=== PATIENT | male | born 1950 | race Caucasian/White ===

== ENCOUNTER 2017-04-27 13:48 | Emergency (ER) | payer OTHER ==
[~2017-04-27] VITALS: Ht 167.6 cm; Wt 86.0 kg
[2017-04-27 13:56] VITALS: Ht 167.6 cm; Wt 86.0 kg
[2017-04-27] MEDS ORDERED: FUROSEMIDE 40 MG INJ IV STA (14:14)
[2017-04-27] MEDS ORDERED: ALBUTEROL 0.083% (NEB) 2.5 MG/3 ML AMP HHN STA (14:14)
[2017-04-27] MEDS ORDERED: AZITHROMYCIN 500MG/NS (PMX) 250 ML IVPB ONE (14:30)
[2017-04-27] MEDS ORDERED: METHYLPREDNISOLONE 125 MG INJ IV ONE (14:30)
[2017-04-27] MEDS ORDERED: DILTIAZEM 30 MG TAB PO ONE (14:30)
[2017-04-27] MEDS ORDERED: DILTIAZEM 25 MG INJ IV ONE ×2 (14:30→15:00)
[2017-04-27] MEDS ORDERED: IPRATROPIUM (NEB) 0.5 MG/2.5 ML AMP HHN ONE (14:30)
[2017-04-27 14:53] LABS: ADD SCAN DIFF NO
--- NOTE | 2017-04-27 14:54 | RADRPT ---
PROCEDURE: XR Chest. CLINICAL INDICATION: Chest pain TECHNIQUE: Single frontal view of the chest was obtained COMPARISON: None FINDINGS: The heart is enlarged. The thoracic aorta is calcified. There is a right lower lobe infiltrate and right pleural effusion. There is no pneumothorax. RPTAT: AA IMPRESSION: Right lower lobe infiltrate and right pleural effusion. Mild cardiomegaly. Calcified aorta consistent with atherosclerotic disease. .Jah Rosenberg MD, MD Date Time Electronically viewed and signed by .Jah Rosenberg MD, on 04/27/2017 14:53 .S/
[2017-04-27 14:56] LABS: BASOPHILS % 0.3 % (0.0-2.0); EOSINOPHILS # 0.1 10^3/ul (0.0-0.5); EOSINOPHILS % 0.5 % (0.0-7.0); HEMATOCRIT 41.2 % (42.0-52.0); HEMOGLOBIN 13.6 g/dl (14.0-18.0); LYMPHOCYTES # 1.8 10^3/ul (0.8-2.9); LYMPHOCYTES % 16.5 % (15.0-51.0); MEAN CORPUSCULAR HEMOGLOBIN 33.5 pg (29.0-33.0); MEAN CORPUSCULAR VOLUME 101.5 fl (82.0-101.0); MEAN PLATELET VOLUME 11.2 fl (7.4-10.4); MONOCYTE # 1.2 10^3/ul (0.3-0.9); NEUTROPHIL # 7.9 10^3/ul (1.6-7.5); NEUTROPHILS % 71.2 % (39.0-77.0); PLATELET COUNT 217 10^3/UL (140-415); RED BLOOD COUNT 4.06 10^6/ul (4.70-6.10); WHITE BLOOD COUNT 11.1 10^3/ul (4.8-10.8)
[2017-04-27 15:12] LABS: INR 1.09; PROTIME 14.1 Sec (12.2-14.2); PT RATIO 1.1
[2017-04-27 15:13] LABS: PARTIAL THROMBOPLASTIN TIME 28.7 Sec (25.0-35.0)
[2017-04-27 15:19] LABS: CREATININE 0.87 mg/dl (0.61-1.24); POTASSIUM 3.9 mmol/L (3.5-5.1)
[2017-04-27 15:24] VITALS: BP 159/117; PULSE 138; RESP 27; TEMP 98.4
[2017-04-27 15:30] LABS: TROPONIN-I 0.014 ng/ml (0.00-0.12)
[2017-04-27] MEDS ORDERED: LEVALBUTEROL (NEB) 1.25 MG/0.5 ML AMP HHN ONE (15:30)
[2017-04-27] MEDS ORDERED: AZIT250T94 PO (15:38)
[2017-04-27] MEDS ORDERED: PRED20TA PO (15:38)
[2017-04-27] MEDS ORDERED: ALBU18HF INHALATION (15:38)
--- NOTE | 2017-04-27 15:59 | ERD ---
ER Documentation Chief Complaint Date/Time DATE: 04/27/17 TIME: 15:58 Chief Complaint Complains of bilateral leg pain HPI Patient is a 66-year-old male with hypertension who presents with bilateral lower extremity swelling. He has swelling up to his testicles and penis. He said that the swelling is been there for 1 month but have gotten worse. He has shortness of breath. He also has chest pain. He tried albuterol for shortness of breath. He says that for the past few days he has been sleeping in a chair because he cannot lay flat. Upon review of old medical records this is the patient's first visit to the emergency department. He said that his primary doctor is at the [facility]. ROS All systems reviewed and are negative except as per history of present illness. Medications Home Meds Active Scripts Prednisone* (Prednisone*) 20 Mg Tab, 60 MG PO DAILY for 4 Days, TAB Prov:EDIE MCCLAIN MD 04/27/17 Albuterol Sulfate* (Ventolin HFA*) 18 Gm Hfa.aer.ad, 2 PUFF INHALATION Q4H, #1 INHALER Prov:EDIE MCCLAIN MD 04/27/17 Azithromycin* (Zithromax*) 250 Mg Tablet, 250 MG PO DAILY for 4 Days, TAB Prov:EDIE MCCLAIN MD 04/27/17 Allergies Allergies: Coded Allergies: No Known Allergy (Unverified , 04/27/17) PMhx/Soc Medical and Surgical Hx: pt denies Medical Hx, pt denies Surgical Hx History of Surgery: No Hx Neurological Disorder: Yes (epilepsy) Hx Respiratory Disorders: Yes (sob doesn't know name of dx) Hx Cardiac Disorders: Yes (high cholesterol) Hx Psychiatric Problems: No Hx Miscellaneous Medical Probl: Yes (previous head trauma) Hx Alcohol Use: No Hx Substance Use: Yes (Marijuana) Hx Tobacco Use: No Smoking Status: Never smoker FmHx Family History: No diabetes Physical Exam Vitals Vital Signs Date Time Temp Pulse Resp B/P Pulse Ox O2 Delivery O2 Flow Rate FiO2 04/27/17 15:36 138 22 98 Nasal Cannula 2.0 04/27/17 15:24 98.4 138 27 159/117 97 Nasal Cannula 2.0 04/27/17 14:57 Nasal Cannula 2 04/27/17 14:53 137 23 153/104 94 Room Air 04/27/17 14:47 140 25 165/110 96 Room Air 04/27/17 13:56 98.8 100 20 168/107 98 Physical Exam Const: Moderate distress Head: Atraumatic Eyes: Normal Conjunctiva ENT: Normal External Ears, Nose and Mouth. Neck: Full range of motion..~ No meningismus. Resp: Clear to auscultation bilaterally Cardio: Diffuse wheezing with tachypnea Abd: Soft, non tender, non distended. Normal bowel sounds Skin: No petechiae or rashes Back: No midline or flank tenderness Ext: 2+ pitting edema from feet all the way up to the scrotum Neur: Awake and alert : Scrotal and penile swelling consistent with edema Result Diagram: 04/27/17 1430 04/27/17 1430 Results 24 hrs Laboratory Tests Test 04/27/17 14:30 White Blood Count 11.110^3/ul Red Blood Count 4.0610^6/ul Hemoglobin 13.6g/dl Hematocrit 41.2% Mean Corpuscular Volume 101.5fl Mean Corpuscular Hemoglobin 33.5pg Mean Corpuscular Hemoglobin Concent 33.0g/dl Red Cell Distribution Width 14.0% Platelet Count 35539^3/UL Mean Platelet Volume 11.2fl Neutrophils % 71.2% Lymphocytes % 16.5% Monocytes % 11.0% Eosinophils % 0.5% Basophils % 0.3% Nucleated Red Blood Cells % 0.0/100WBC Neutrophils # 7.910^3/ul Lymphocytes # 1.810^3/ul Monocytes # 1.210^3/ul Eosinophils # 0.110^3/ul Basophils # 0.010^3/ul Nucleated Red Blood Cells # 0.010^3/ul Prothrombin Time 14.1Sec Prothrombin Time Ratio 1.1 INR International Normalized Ratio 1.09 Activated Partial Thromboplast Time 28.7Sec Sodium Level 139mmol/L Potassium Level 3.9mmol/L Chloride Level 102mmol/L Carbon Dioxide Level 30mmol/L Anion Gap 11 Blood Urea Nitrogen 14mg/dl Creatinine 0.87mg/dl Glucose Level 106mg/dl Calcium Level 9.0mg/dl Troponin I 0.014ng/ml Current Medications Medications (Trade) Dose Ordered Sig/Lia Route PRN Reason Start Time Stop Time Status Last Admin Dose Admin Furosemide (Lasix) 40 mg ONCE STAT IV 6/11/17 14:14 04/27/17 14:15 DC 04/27/17 14:35 Albuterol (Proventil 0.083% (Neb)) 5 mg ONCE STAT HHN 04/27/17 14:14 04/27/17 15:27 DC Ipratropium [place] (Atrovent 0.02% (Neb)) 0.5 mg ONCE ONCE HHN 04/27/17 14:30 04/27/17 14:31 DC 04/27/17 15:35 Methylprednisolone Sodium Succinate 125 mg 125 mg ONCE ONCE IV 04/27/17 14:30 04/27/17 14:31 DC 04/27/17 14:36 Azithromycin (Zithromax 500mg/ NS (Pmx)) 250 ml @ 250 mls/hr ONCE ONCE IVPB 04/27/17 14:30 04/27/17 15:29 DC 04/27/17 14:36 Diltiazem HCl (Cardizem Iv) 20 mg ONCE ONCE IV 04/27/17 14:30 04/27/17 14:31 DC 04/27/17 14:36 Diltiazem HCl (Cardizem) 30 mg ONCE ONCE PO 04/27/17 14:30 04/27/17 14:31 DC 04/27/17 15:36 Diltiazem HCl (Cardizem Iv) 20 mg ONCE ONCE IV 04/27/17 15:00 04/27/17 15:01 DC 04/27/17 15:03 Levalbuterol (Xopenex Neb) 1.25 mg ONCE ONCE HHN 04/27/17 15:30 04/27/17 15:31 DC 04/27/17 15:35 Procedures/MDM EKG read by me: Rate/Rhythm: Atrial flutter at a rate of 140 Intervals: Normal Impression: Atrial flutter with rapid ventricular response Chest x-ray shows right lower lobe pneumonia per radiology. Smoking Cessation Therapy: Pt. was lectured for greater than 3 minutes on the health risks of continued smoking and the benefits of cessation. Patient is a 66-year-old male who presents with shortness of breath and chest pain. He has atrial flutter on his EKG it was given diltiazem both IV and p.o. without change. I want to start him on a Cardizem drip and admit him to the intensive care unit but he is refusing to stay in the hospital at this time and wants to sign out AGAINST MEDICAL ADVICE. His chest x-ray also shows pneumonia and I have given him Zithromax and would like him to be admitted for this either but he understands and wants to leave AGAINST MEDICAL ADVICE. He has pulmonary edema and lower extremity edema and was given Lasix and would likely benefit from continued Lasix. He most likely has congestive heart failure. He also has COPD. I asked him on 3 separate occasions to stay in the hospital but he is refusing. He will be given copies of his laboratory and imaging results and can return if symptoms worsen or he would like to be admitted. Critical Care: Time: 35 minutes excluding all billable procedures. Treatments/Evaluations: Close monitoring and treatment of unstable vital signs, cardiorespiratory, and neurologic status, while maintaining tight balance of fluid, respiratory, and cardiac interventions. Departure Diagnosis: Primary Impression: Pneumonia Pneumonia type: due to unspecified organism Laterality: right Lung location : lower lobe of lung Qualified Code: J18.1 - Pneumonia of right lower lobe due to infectious organism Additional Impressions: COPD exacerbation Acute CHF Congestive heart failure type: unspecified congestive heart failure type Qualified Code: I50.9 - Acute congestive heart failure, unspecified congestive heart failure type Atrial flutter with rapid ventricular response Anemia Anemia type: unspecified type Qualified Code: D64.9 - Anemia, unspecified type Condition: Serious Patient Instructions: Atrial Flutter, Heart Failure, General Referrals: RAYMOND CRUZ (PCP) Additional Instructions: FOLLOW UP WITH YOUR PRIMARY CARE PHYSICIAN TOMORROW.Return to this facility if you are not improving as expected. EDIE MCCLAIN MD Apr 27, 2017 15:59
[2017-04-27] MEDS ORDERED: FURO-110 PO (17:00)
== END 2017-04-27 16:39 | disposition left against medical advice (07) ==
LOC: E/R 13:48
DX: J18.1 Lobar pneumonia, unspecified organism (principal); J44.1 Chronic obstructive pulmonary disease with (acute) exacerbation; I50.9 Heart failure, unspecified; I48.92 Unspecified atrial flutter; D64.9 Anemia, unspecified; R40.2142 Coma scale, eyes open, spontaneous, at arrival to emergency department; R40.2252 Coma scale, best verbal response, oriented, at arrival to emergency department; R40.2362 Coma scale, best motor response, obeys commands, at arrival to emergency department
CPT/HCPCS: 36415; 71010; 80048; 84484; 85025; 85610; 85730; 93005; 94664; 96374; 96375; 96376; 99291; J0456; J1940; J2930